=== PATIENT | female | born 1955 | race Caucasian/White ===

== ENCOUNTER → 2016-12-28 | Outpatient (CLI) | payer OTHER ==
[2015-07-27 11:56] VITALS: BP 126/67
[~2016-12-28] MED LIST: CITA10TA8 PO; CYCL-331 PO; ESTR0.5T PO; FLUT1DIS3 IH; MEDR2.5T28 PO
[2016-12-28 19:57] LABS: ALBUMIN 3.8 g/dL (3.4-5.0); ALBUMIN/GLOBULIN RATIO 1.2 (1.0-1.7); CALCIUM 9.1 mg/dL (8.5-10.1); CREATININE 1.1 mg/dL (0.6-1.0); GFR 50.5; POTASSIUM 4.6 mmol/L (3.5-5.1); TOTAL BILIRUBIN 0.2 mg/dL (0.2-1.0); TOTAL PROTEIN 7.1 g/dL (6.4-8.2)
== END | disposition home or self-care (01) ==
LOC: SPEC 18:28
PROVIDERS: ATTEND Nurse Practitioner
DX: I10 Essential (primary) hypertension (principal); F17.200 Nicotine dependence, unspecified, uncomplicated
CPT/HCPCS: 36415; 80053

== ENCOUNTER 2018-01-15 15:10 | Emergency (ER) | payer OTHER ==
--- NOTE | 2018-01-15 16:08 | PHYS DOC ---
Past History Past Medical History: Asthma, Bronchitis, Depression, Hypertension Past Surgical History: Appendectomy, , Tonsillectomy Alcohol Use: Occasionally Drug Use: None Adult General Chief Complaint Chief Complaint: WRIST PAIN HPI HPI 62-year-old female presents with right wrist pain. Patient was out walking her dogs when she slipped on the ice and fell onto her right arm. Patient noticed deformity and had immediate pain. Patient admits to having or cans of beer today. She drinks daily. She also hit her head, but denies current headache. She denies loss of consciousness. She has no other complaints. Review of Systems Review of Systems Constitutional: Denies fever or chills [] Eyes: Denies change in visual acuity, redness, or eye pain [] HENT: Denies nasal congestion or sore throat [] Respiratory: Denies cough or shortness of breath [] Cardiovascular: No additional information not addressed in HPI [] GI: Denies abdominal pain, nausea, vomiting, bloody stools or diarrhea [] : Denies dysuria or hematuria [] Musculoskeletal: Right wrist pain[] Integument: Denies rash or skin lesions [] Neurologic: Denies headache, focal weakness or sensory changes [] Endocrine: Denies polyuria or polydipsia [] All other systems were reviewed and found to be within normal limits, except as documented in this note. Allergies Allergies Allergies Coded Allergies Type Severity Reaction Last Updated Verified Penicillins Allergy Intermediate 11/09/14 Yes aspirin Allergy Intermediate 11/09/14 No codeine Allergy Intermediate 11/09/14 No morphine Allergy Intermediate 11/09/14 No procaine Allergy Intermediate 11/09/14 No Physical Exam Physical Exam Constitutional: Well developed, well nourished, no acute distress, non-toxic appearance. [] HENT: Normocephalic, atraumatic, bilateral external ears normal, oropharynx moist, no oral exudates, nose normal. [] Eyes: PERRLA, EOMI, conjunctiva normal, no discharge. [] Neck: Normal range of motion, no tenderness, supple, no stridor. [] Cardiovascular:Heart rate regular rhythm, no murmur [] Lungs & Thorax: Bilateral breath sounds clear to auscultation [] Abdomen: Bowel sounds normal, soft, no tenderness, no masses, no pulsatile masses. [] Skin: Warm, dry, no erythema, no rash. [] Back: No tenderness, no CVA tenderness. [] Extremities: Right wrist swollen and deformity. Tender to palpation. Unable to do range of motion due to pain[] Neurologic: Alert and oriented X 3, normal motor function, normal sensory function, no focal deficits noted. [] Psychologic: Affect normal, judgement normal, mood normal. [] EKG EKG [] Radiology/Procedures Radiology/Procedures [] Impressions: History: Fall today, pain, deformity. Comparison: None. Findings: PA, lateral, and oblique views of the right wrist. Acute, mildly comminuted, transversely oriented fracture is seen involving the distal radial metaphysis. Fracture line appears to spare the distal radioulnar and radiocarpal joints. There is mild dorsal displacement of the distal fracture fragments. There is also loss of normal volar tilt of the distal radius. There is slight irregularity of the tip of the ulnar styloid, compatible with nondisplaced fracture. There is associated soft tissue swelling. Impression: 1. Acute, comminuted distal radial fracture. 2. Nondisplaced ulnar styloid fracture. Electronically signed by: Fannie Stallworth MD (01/15/2018 4:09 PM) [id number] DICTATED AND SIGNED BY: FANNIE STALLWORTH MD DATE: 01/15/181605 CC: CHESTER SANDOVAL DO; PCP,[facility] Course & Med Decision Making Course & Med Decision Making Pertinent Labs and Imaging studies reviewed. (See chart for details) Patient has a closed fracture of the distal radius and ulnar styloid. It is minimally displaced. We have placed her in a sugar tong splint and given her orthopedic follow-up contact information. She will make an appointment this week to discuss cast versus or drink. I have discharged her with a short course of [place] 5/325 for pain. She is stable for discharge at this time. [] Dragon Disclaimer Dragon Disclaimer This electronic medical record was generated, in whole or in part, using a voice recognition dictation system. Departure Departure: Referrals: [facility] (PCP) Scripts Hydrocodone Bit/Acetaminophen (NORCO 5-325 TABLET) 1 Each Tablet 1 TAB PO PRN Q6HRS PRN for PAIN, #10 TAB 0 Refills Prov: CHESTER SANDOVAL DO 01/15/18 CHESTER SANDOVAL DO Jan 15, 2018 16:08
--- NOTE | 2018-01-15 16:12 | RAD ---
History: Fall today, pain, deformity. Comparison: None. Findings: PA, lateral, and oblique views of the right wrist. Acute, mildly comminuted, transversely oriented fracture is seen involving the distal radial metaphysis. Fracture line appears to spare the distal radioulnar and radiocarpal joints. There is mild dorsal displacement of the distal fracture fragments. There is also loss of normal volar tilt of the distal radius. There is slight irregularity of the tip of the ulnar styloid, compatible with nondisplaced fracture. There is associated soft tissue swelling. Impression: 1. Acute, comminuted distal radial fracture. 2. Nondisplaced ulnar styloid fracture. Electronically signed by: David Stallworth MD (01/15/2018 4:09 PM) [place] [id number]
[2018-01-15] MEDS ORDERED: HYDR-3165 PO (17:51)
[2018-01-15 18:06] VITALS: BP 152/70
== END 2018-01-15 18:06 | disposition home or self-care (01) ==
LOC: ER 15:10
DX: S52.591A Other fractures of lower end of right radius, initial encounter for closed fracture (principal); S52.611A Displaced fracture of right ulna styloid process, initial encounter for closed fracture; J45.909 Unspecified asthma, uncomplicated; I10 Essential (primary) hypertension; F32.9 Major depressive disorder, single episode, unspecified; Z88.0 Allergy status to penicillin; Z88.6 Allergy status to analgesic agent; Z88.5 Allergy status to narcotic agent; Z88.4 Allergy status to anesthetic agent; W00.0XXA Fall on same level due to ice and snow, initial encounter; Y93.K1 Activity, walking an animal; Y92.89 Other specified places as the place of occurrence of the external cause; Y99.8 Other external cause status
CPT/HCPCS: 29125; 73110; 99283

== ENCOUNTER → 2019-01-14 | Outpatient (CLI) | payer OTHER ==
[~2019-01-14] MED LIST changes: +HYDR-3165 PO
--- NOTE | 2019-01-15 21:06 | RAD ---
Study: 2-D digital mammography-bilateral History: Routine screening. Technique: Bilateral digital mammographic routine views were obtained with CAD - computer aided detection. Comparison: Most recently on 09/08/2015. Findings: Breast Tissue Density C : The breast tissue is heterogeneously dense. Scattered fibroglandular elements may obscure underlying pathology. More conspicuous focal asymmetry within the upper/outer aspect of the left breast, approximately the 1 to 2:00 position, located between 5.5 and 6 cm from the nipple. Further evaluation with CC and mediolateral spot compression views is recommended with ultrasound to be performed subsequently as deemed necessary. Scattered microcalcifications with benign morphology again seen within the right breast. No new abnormality on the right concerning for malignancy. Impression: More conspicuous left breast focal asymmetry, as detailed above, warranting further evaluation with diagnostic mammography with the potential for ultrasound. BI-RADS Category 0: Incomplete: Need additional imaging evaluation. "Our facility is accredited by the [employer] Mammography Program."
== END | disposition home or self-care (01) ==
LOC: MAMMO 09:37
PROVIDERS: ATTEND Nurse Practitioner Family
DX: Z12.31 Encounter for screening mammogram for malignant neoplasm of breast (principal); N64.89 Other specified disorders of breast
CPT/HCPCS: 77067

== ENCOUNTER → 2019-02-12 | Outpatient (CLI) | payer OTHER ==
--- NOTE | 2019-02-12 14:58 | RAD ---
DATE: 02/12/2019. EXAM: DIGITAL DIAGNOSTIC LT, BREAST LEFT. HISTORY: Indeterminate findings on screening mammography. Additional imaging is requested. COMPARISON: 09/08/2015, 01/14/2019. This study was interpreted with the benefit of Computerized Aided Detection (CAD). FINDINGS: Breast Density: DENSE The breast parenchyma is dense, which could reduce the sensitivity of mammography. Breast parenchyma level density D.. The suggested architectural distortion of concern laterally on the left resolves to its former appearance on spot compression. Scattered calcifications are benign. There is no suspicious mammographic finding. Sonography was performed from the 1:00 through 4:00 positions on the left. This reveals only normal parenchyma. There is no suspicious sonographic finding. BI-RADS CATEGORY: 2 BENIGN FINDING(S). RECOMMENDED FOLLOW-UP: 12M 12 MONTH FOLLOW-UP. PQRS compliance statement: Patient information was entered into a reminder system with a target due date 02/13/2020 for the next mammogram. Mammography is a sensitive method for finding small breast cancers, but it does not detect them all and is not a substitute for careful clinical examination. A negative mammogram does not negate a clinically suspicious finding and should not result in delay in biopsying a clinically suspicious abnormality. "Our facility is accredited by the [employer] Mammography Program."
== END | disposition home or self-care (01) ==
LOC: MAMMO 13:41
PROVIDERS: ATTEND Nurse Practitioner Family
DX: R92.8 Other abnormal and inconclusive findings on diagnostic imaging of breast (principal)
CPT/HCPCS: 76641; 77065

== ENCOUNTER → 2020-03-16 | Outpatient (CLI) | payer OTHER ==
--- NOTE | 2020-03-16 13:04 | RAD ---
DATE: 03/16/2020 10:54 AM EXAM: DIGITAL SCREEN BILAT W/CAD HISTORY: Screening COMPARISON: 01/14/2019 Bilateral full field craniocaudal and mediolateral oblique images were obtained using digital technique. This study was interpreted with the benefit of Computerized Aided Detection (CAD). FINDINGS: Breast Density: HETERO The breast parenchyma Is heterogeneously dense, which could reduce sensitivity of mammography. Breast parenchyma level C No suspicious masses, microcalcifications or architectural distortion is present to suggest malignancy in either breast. The visualized axillae are unremarkable. IMPRESSION: No mammographic evidence of malignancy. BI-RADS CATEGORY: 1 NEGATIVE RECOMMENDED FOLLOW-UP: 12M 12 MONTH FOLLOW-UP Annual screening mammography is recommended, unless clinically indicated sooner based on symptoms or change in physical exam. PQRS compliance statement: Patient information was entered into a reminder system with a target due date for the next mammogram. Mammography is a sensitive method for finding small breast cancers, but it does not detect them all and is not a substitute for careful clinical examination. A negative mammogram does not negate a clinically suspicious finding and should not result in delay in biopsying a clinically suspicious abnormality. "Our facility is accredited by the [employer] Mammography Program."
== END ==
LOC: MAMMO 10:47
PROVIDERS: ATTEND Nurse Practitioner Family
DX: Z12.31 Encounter for screening mammogram for malignant neoplasm of breast (principal)
CPT/HCPCS: 77067

== ENCOUNTER → 2020-08-10 | Outpatient (CLI) | payer MEDICARE ==
--- NOTE | 2020-08-10 09:35 | RAD ---
PQRS Compliance Statement: One or more of the following individualized dose reduction techniques were utilized for this examinat ion: 1. Automated exposure control 2. Adjustment of the mA and/or kV according to patient size 3. Use of iterative reconstruction technique CT THORAX WO Clinical Indication: Reason: SMOKER X 52 YEARS 1 PK/DAY, SHORTNESS OF BREATH, / HX EMPHYSEMA Comparison: CT chest with contrast August 05, 2015. TECHNIQUE: Helical CT imaging of the chest is performed without IV contrast. Findings: There is a probable sebaceous cyst incompletely seen on image #1 of the right upper back. Atheroscler otic aortic arch and its branches. There is no axillary adenopathy. There are subcentimeter mediastin al lymph nodes. Limited evaluation of the leonardo without IV contrast. The great vessels are normal ethan myrtle. Cardiac size is normal. There is small pericardial effusion. The central airways are patent. There is mild centrilobular and paraseptal emphysema. There is focal mucus plugging in the right middle lobe, image 183. Small groundglass opacity in the medial right mid dle lobe inferiorly. Linear opacities in the inferior left lower lobe may be atelectasis or scarring. No pulmonary nodule is identified. Moderate atherosclerotic abdominal aorta. Old left posterior rib fractures. There are old anterior wedge deformities of the T8 and T9 vertebral bodies. IMPRESSION: 1. No noncalcified pulmonary nodule is identified. 2. Mild pericardial effusion. 3. Mild pulmonary edema. Electronically signed by: Jason Posey MD (08/10/2020 9:32 AM) [facility]
== END ==
LOC: CT 08:11
PROVIDERS: ATTEND Family Medicine
DX: J43.2 Centrilobular emphysema (principal); J81.1 Chronic pulmonary edema; I31.3 Pericardial effusion (noninflammatory); R91.8 Other nonspecific abnormal finding of lung field; Z87.09 Personal history of other diseases of the respiratory system
CPT/HCPCS: 71250